=== PATIENT | male | born 1980 | race Caucasian/White ===

== ENCOUNTER 2018-10-05 13:29 | Emergency (ER) | payer SELFPAY ==
--- NOTE | 2018-10-05 13:47 | PDOC ---
Rapid Medical Evaluation Medical Evaluation: 10/05/18 13:47 I have performed a brief in-person evaluation of this patient. The patient presents with a chief complaint of:L heel pain s/p fall 3 days ago Pertinent physical exam findings: deferred to ED staff I have ordered the following:xray foot The patient will proceed to the ED for further evaluation. Discharge Disposition - Diagnosis Foot injury Qualifiers: Encounter type: initial encounter Laterality: left Qualified Code(s): S99.922A - Unspecified injury of left foot, initial encounter - Referrals - Patient Instructions - Post Discharge Activity
[2018-10-05 13:50] VITALS: BP 149/95; PULSE 100; TEMP 98.7; BMI 29.0
--- NOTE | 2018-10-05 14:39 | PDOC ---
History of Present Illness - General Chief Complaint: Injury Stated Complaint: LT. FOOT PAIN Time Seen by Provider: 10/05/18 13:48 History Source: Patient Exam Limitations: No Limitations - History of Present Illness Initial Comments: 10/05/18 States slipped and twisted his left foot 3 days ago and has persistent pain. Is able to ambulate, used ice and ibuprofen with some resolved. No other injury Occurred: reports: yesterday (3 days ago) Severity: reports: moderate Pain Location: reports: lower extremity (keft foot heel) Method of Injury: Yes: fall Modifying Factors: improves with: cold therapy Loss of Consciousness: no loss of consciousness Associated Symptoms (Fall): denies symptoms Past History - Travel Traveled outside of the country in the last 30 days: No Close contact w/someone who was outside of country & ill: No - Past Medical History Allergies/Adverse Reactions: Allergies Allergy/AdvReac Type Severity Reaction Status Date / Time No Known Allergies Allergy Verified 10/05/18 14:13 Home Medications: Ambulatory Orders NK [No Known Home Medication] 10/05/18 COPD: No - Immunization History Immunization Up to Date: Yes - Suicide/Smoking/Psychosocial Hx Smoking History: Never smoked Information on smoking cessation initiated: No Hx Alcohol Use: No Drug/Substance Use Hx: No Review of Systems - Review of Systems Able to Perform ROS?: Yes Is the patient limited [place] proficient: Yes Constitutional: Yes: Symptoms Reported, See HPI, Malaise. No: Fever HEENTM: No: Symptoms Reported Respiratory: No: Symptoms reported Musculoskeletal: Yes: Symptoms Reported, See HPI, Joint Pain, Joint Swelling Integumentary: Yes: Symptoms Reported, See HPI, Bruising Neurological: Yes: See HPI. No: Symptoms reported All Other Systems: Reviewed and Negative *Physical Exam - Vital Signs Last Vital Signs Temp Pulse Resp BP Pulse Ox 98.7 F 100 H 17 149/95 99 10/05/18 13:47 10/05/18 13:47 10/05/18 13:47 10/05/18 13:47 10/05/18 13:47 - Physical Exam General Appearance: Yes: Nourished, Appropriately Dressed, Apparent Distress, Mild Distress HEENT: positive: ARIEL, Normal ENT Inspection, TMs Normal, Pharynx Normal Neck: positive: Supple. negative: Tender, Lymphadenopathy (R) Respiratory/Chest: positive: Lungs Clear Gastrointestinal/Abdominal: positive: Soft Extremity: positive: Normal Capillary Refill, Normal Range of Motion, Tender ( to lateral aspect of midfoot. no crepitus or stepoff, neurovasc intact to toes ) , Swelling Integumentary: positive: Normal Color, Dry, Warm. 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 *DC/Admit/Observation/Transfer Diagnosis at time of Disposition: Foot injury Qualifiers: Encounter type: initial encounter Laterality: left Qualified Code(s): S99.922A - Unspecified injury of left foot, initial encounter - Discharge Dispostion Disposition: HOME Condition at time of disposition: Stable Decision to Admit order: No - Referrals - Patient Instructions Printed Discharge Instructions: DI for Contusion Additional Instructions: Rest, ice to area on and off for 15 minutes 4-6 times a day Avoid heavy lifting or exercise until pain and swelling is resolved or until further directed Keep area highly elevated to reduce swelling Use splints/Shahab wrap as directed Followup with orthopedist in one to 2 days if not improving, if significantly improved may wait one week for followup with orthopedist May use ibuprofen every 6 hours as needed for pain - Post Discharge Activity Forms/Work/School Notes: Back to Work
== END 2018-10-05 15:44 | disposition home or self-care (01) ==
LOC: JERFT 13:29
DX: S90.32XA Contusion of left foot, initial encounter (principal); W01.0XXA Fall on same level from slipping, tripping and stumbling without subsequent striking against object, initial encounter; Y93.89 Activity, other specified; Y92.89 Other specified places as the place of occurrence of the external cause; Y99.8 Other external cause status
CPT/HCPCS: 73630-TC-LT; 99281-25